=== PATIENT | female | born 1995 | race Caucasian/White ===

== ENCOUNTER 2019-05-23 16:08 | Inpatient (IN) ==
[2019-05-23 17:00] LABS: Basophils % 0.1 % (0.0-0.8); Eosinophils % 0.5 % (0.00-10.9); Hematocrit 35.9 VOL% (35.7-47.0); Hemoglobin 11.3 GM/DL (12.0-16.0); Immature Granulocytes % 0.5 %; Immature Granulocytes Absolute 0.04 #; Lymphocytes # 2.5 10*3/uL (1.4-4.0); Lymphocytes % 29.7 % (21.3-54.2); Mean Corpuscular HGB Conc 31.5 GM/DL (32-36); Mean Corpuscular Volume 79.8 FL (87-102); Mean Platelet Volume 11.4 FL (9.6-12.0); Monocytes % 4.6 % (1.7-12.7); Neutrophils % 64.6 % (38.7-73.9); Platelet Count 192 T/CUMM (130-400); White Blood Count 8.4 T/CUMM (4-12)
[2019-05-23 17:19] LABS: Albumin 1.7 G/DL (3.4-5.0); Bilirubin,Total 0.8 MG/DL (0.2-1.0); Calcium 8.1 MG/DL (8.5-10.1); Osmolality,Calculated 277.5 MOS/KG (273-304); Total Protein 5.6 G/DL (6.4-8.3); Uric Acid 6.7 MG/DL (2.6-6.0)
[2019-05-23 17:31] LABS: Apearance,Urine Slightly Hazy (Clear); Bacteria,Urine Occasional /HPF (Few); Bilirubin,Urine Negative (Negative); Blood, Urine Negative (Negative); Glucose,Urine (UA) 50 mg/dL (Negative); Hyaline Casts,Urine 1 /LPF (0-3); Ketones,Urine Negative (Negative); Mucus,Urine Occasional /LPF (Occasional); Nitrite,Urine Negative (Negative); Protein,Urine >=500 MG/DL; Squamous Epithelial Cell,Urine Occasional /HPF (0-10); Urine Color Yellow (Yellow); Urine Specific Gravity 1.031 (1.001-1.035); Urine Urobilinogen < 2.0 EU/DL (0.2-1.0); WBC,Urine 8 /HPF (0-6)
[2019-05-23] MEDS ORDERED: hydrALAZINE 20 MG/1 ML VIAL IV PRN (18:19)
[2019-05-23] MEDS ORDERED: GLUCAGON 1 MG VIAL IM PRN (18:22)
[2019-05-23] MEDS ORDERED: DEXTROSE 10% 250 ML BAG IV PRN (18:22)
[2019-05-23] MEDS: DEXTROSE 5% NACL 0.45% 1,000 ML IV SCH (18:40)
[2019-05-23] MEDS: LABETALOL 200 MG TABLET PO SCH (19:45)
[2019-05-23] MEDS ORDERED: ACETAMINOPHEN 325 MG TABLET PO PRN (20:03)
[2019-05-23] MEDS ORDERED: BUTORPHANOL 2 MG/ML VIAL IV PRN (20:04)
[2019-05-23] MEDS ORDERED: LABETALOL 200 MG TABLET PO SCH (21:00)
[2019-05-24] MEDS: INSULIN REGULAR 100 UNIT/ML SUBCUT SCH ×4 (01:55→17:41)
[2019-05-24] MEDS: LABETALOL 200 MG TABLET PO SCH ×3 (03:20→15:33)
[2019-05-24] MEDS: DEXTROSE 5% NACL 0.45% 1,000 ML IV SCH (03:21)
[2019-05-24] MEDS ORDERED: ceFAZolin 2,000 MG in PREMIX 1 EACH IV ONE (05:43)
[2019-05-24] MEDS ORDERED: CITRIC ACID/SODIUM CITRATE 30 ML UDCUP PO ONE (05:43)
[2019-05-24] MEDS ORDERED: FAMOTIDINE 20 MG/2 ML VIAL IV ONE (05:43)
[2019-05-24] MEDS ORDERED: LACTATED RINGERS 1,000 ML IV SCH (06:00)
[2019-05-24] MEDS ORDERED: BUPIVACAINE SPINAL 0.75% 2 ML AMP SPINAL ONE (06:59)
[2019-05-24] MEDS ORDERED: OXYTOCIN/LR 20 UNIT/1,000 ML BAG IV ONE ×2 (07:00→08:44)
[2019-05-24] MEDS ORDERED: LACTATED RINGERS 1,000 ML IV ONE (07:13)
[2019-05-24] MEDS ORDERED: HYDROCORTISONE 2.5% RECTAL CREAM 30 GM TUBE TOP PRN (08:44)
[2019-05-24] MEDS ORDERED: BISACODYL 10 MG SUPP RECTAL PRN (08:44)
[2019-05-24] MEDS ORDERED: RHO(D) IMMUNE GLOBULIN 300 MCG SYRINGE IM ONE (08:44)
[2019-05-24] MEDS ORDERED: MEASLES/MUMPS/RUBELLA VACCINE 0.5 ML VIAL SUBCUT ONE (08:44)
[2019-05-24] MEDS ORDERED: ONDANSETRON 4 MG/2 ML VIAL IV PRN (08:44)
[2019-05-24] MEDS ORDERED: ACETAMINOPHEN 325 MG TABLET PO PRN (08:44)
[2019-05-24] MEDS ORDERED: WITCH HAZEL PADS 100/JAR TOP PRN (08:44)
[2019-05-24] MEDS ORDERED: BENZOCAINE 20%/MENTHOL 0.5% SPRAY 56 GM CAN TOP PRN (08:44)
[2019-05-24] MEDS ORDERED: DIPH/TET/ACEL PERT BOOSTER VACCINE 0.5 ML VIAL IM ONE (08:44)
[2019-05-24] MEDS ORDERED: LANOLIN 50% CREAM 0.3 OZ TUBE TOP PRN (08:44)
[2019-05-24] MEDS ORDERED: LIDOCAINE 2% 5 ML VIAL ONE (09:09)
[2019-05-24] MEDS ORDERED: propofoL 200 MG/20 ML VIAL IV ONE (09:09)
[2019-05-24] MEDS ORDERED: DEXAMETHASONE 4 MG/1 ML VIAL ONE (09:09)
[2019-05-24] MEDS ORDERED: MORPHINE 10 MG/10 ML VIAL ONE (09:09)
[2019-05-24] MEDS ORDERED: PHENYLEPHRINE 10 MG/1 ML VIAL IV ONE (09:10)
[2019-05-24] MEDS ORDERED: ONDANSETRON 4 MG/2 ML VIAL ONE (09:10)
[2019-05-24] MEDS ORDERED: FUROSEMIDE 20 MG/2 ML VIAL ONE (09:10)
[2019-05-24 09:45] LABS: Apearance,Urine CLOUDY (Clear); Blood, Urine Negative (Negative); Glucose,Urine (UA) 50 mg/dL (Negative); Ketones,Urine 5 mg/dL (Negative); Mucus,Urine Many /LPF (Occasional); Nitrite,Urine Negative (Negative); Protein,Urine >=500 MG/DL; RBC,Urine 63 /HPF (0-4); Squamous Epithelial Cell,Urine Occasional /HPF (0-10); Urine Color Amber (Yellow); Urine Specific Gravity 1.034 (1.001-1.035); Urine Urobilinogen < 2.0 EU/DL (0.2-1.0)
[2019-05-24 09:46] LABS: Bilirubin,Urine Small mg/dL (Negative)
[2019-05-24] MEDS: oxyCODONE/ACETAMINOPHEN 5-325 MG TABLET PO PRN (13:22)
[2019-05-24] MEDS ORDERED: MEPERIDINE 25 MG/1 ML VIAL IV SCH (15:00)
[2019-05-24] MEDS ORDERED: MEPERIDINE 25 MG/1 ML VIAL IV PRN (15:00)
[2019-05-24] MEDS: ceFAZolin 1,000 MG in SYRINGE 1 EACH IV SCH ×2 (15:56→21:45)
[2019-05-24] MEDS ORDERED: FUROSEMIDE 40 MG/4 ML VIAL IV ONE (20:00)
[2019-05-24] MEDS ORDERED: DEXTROSE 50% 25 GM/50 ML SYRINGE IV PRN (21:18)
[2019-05-24] MEDS ORDERED: diphenhydrAMINE 50 MG/1 ML VIAL IV PRN (21:50)
[2019-05-24] MEDS ORDERED: diphenhydrAMINE 50 MG/1 ML VIAL ONE (21:52)
[2019-05-24] MEDS: DOCUSATE SODIUM 100 MG CAPSULE PO SCH (22:00)
[2019-05-25] MEDS: IBUPROFEN 800 MG TABLET PO PRN ×2 (06:05→19:24)
[2019-05-25] MEDS: oxyCODONE/ACETAMINOPHEN 5-325 MG TABLET PO PRN ×3 (06:05→19:24)
[2019-05-25 06:15] LABS: Basophils % 0.1 % (0.0-0.8); Eosinophils # 0.1 10*3/uL (0.0-0.87); Eosinophils % 0.4 % (0.00-10.9); Hematocrit 28.8 VOL% (35.7-47.0); Hemoglobin 9.1 GM/DL (12.0-16.0); Immature Granulocytes % 0.3 %; Immature Granulocytes Absolute 0.04 #; Lymphocytes # 3.1 10*3/uL (1.4-4.0); Lymphocytes % 25.5 % (21.3-54.2); Mean Corpuscular HGB Conc 31.6 GM/DL (32-36); Mean Corpuscular Volume 80.4 FL (87-102); Mean Platelet Volume 11.8 FL (9.6-12.0); Monocytes % 5.9 % (1.7-12.7); Neutrophils % 67.8 % (38.7-73.9); Platelet Count 189 T/CUMM (130-400); Red Blood Count 3.58 MC/CUMM (3.8-5.5); Red Cell Distribution Width 14.5 % (9.3-17.3); White Blood Count 12.1 T/CUMM (4-12)
[2019-05-25] MEDS: LABETALOL 200 MG TABLET PO SCH ×5 (07:30→20:07)
[2019-05-25] MEDS: INSULIN REGULAR 100 UNIT/ML SUBCUT SCH ×4 (07:45→21:19)
[2019-05-25] MEDS: DOCUSATE SODIUM 100 MG CAPSULE PO SCH ×3 (09:21→20:52)
[2019-05-25] MEDS: MAGNESIUM HYDROXIDE SUSP 30 ML UDCUP PO PRN ×2 (10:10→19:23)
[2019-05-25] MEDS: SIMETHICONE CHEW 80 MG TABLET PO PRN (19:23)
[2019-05-26] MEDS: IBUPROFEN 800 MG TABLET PO PRN ×2 (03:54→22:53)
[2019-05-26] MEDS: LABETALOL 200 MG TABLET PO SCH ×3 (03:54→22:53)
[2019-05-26] MEDS: oxyCODONE/ACETAMINOPHEN 5-325 MG TABLET PO PRN ×3 (03:55→22:53)
[2019-05-26] MEDS: INSULIN REGULAR 100 UNIT/ML SUBCUT SCH ×4 (07:53→20:50)
[2019-05-26] MEDS ORDERED: FUROSEMIDE 40 MG/4 ML VIAL IV ONE (08:44)
[2019-05-26] MEDS: DOCUSATE SODIUM 100 MG CAPSULE PO SCH ×2 (09:17→20:50)
[2019-05-27] MEDS: LABETALOL 200 MG TABLET PO SCH ×2 (06:26→16:14)
[2019-05-27] MEDS: DOCUSATE SODIUM 100 MG CAPSULE PO SCH (09:42)
[2019-05-27] MEDS: MAGNESIUM HYDROXIDE SUSP 30 ML UDCUP PO PRN (09:42)
[2019-05-27] MEDS: SIMETHICONE CHEW 80 MG TABLET PO PRN (09:43)
[2019-05-27] MEDS: oxyCODONE/ACETAMINOPHEN 5-325 MG TABLET PO PRN (09:43)
[2019-05-27] MEDS: IBUPROFEN 800 MG TABLET PO PRN (09:45)
[2019-05-27] MEDS ORDERED: INFLUENZA VIRUS VACCINE 0.5 ML SYRINGE IM ONE (09:56)
[2019-05-27 15:03] VITALS: BP 140/87
== END 2019-05-27 15:00 | disposition home or self-care (01) | DRG 786 ==
LOC: N.LDOUT 16:08 → N.LD 16:15 → N.OB 05-24 12:56
PROVIDERS: ADMIT Specialist; ATTEND Specialist
PROC: LDCSECT (ICD-10-PCS; 2019-05-24 07:30)